=== PATIENT | female | born 1965 | race Caucasian/White ===

== ENCOUNTER → 2017-02-23 | Outpatient (CLI) | payer OTHER ==
[~2017-02-23] VITALS: Ht 160 cm; Wt 142.9 kg
[~2017-02-23] MED LIST: ALEVE220 MG PO; CYMBALTA60 MG PO; LISINOPRIL5 MG PO; PRILOSEC 20 MG20 MG PO; VENLAFAXIN75 MG/1 T2 PO
--- NOTE | ~2017-02-23 | P ---
[facility] [place] [facility] [place] [address] PROCEDURE REPORT Name: ERIBERTO MARTÍNEZ Room #: [facility]#: [id number] Admission: 02/23/17 Attend Phys: Elpidio Alvarez MD Discharge: Date of : 63 Report #: [id number] THIS REPORT FOR: //name// CC: Elpidio Navas MD BRIEF HISTORY: The patient is a 51-year-old woman who presents for her first screening colonoscopy. PREOPERATIVE DIAGNOSIS: Average risk screening colonoscopy. POSTOPERATIVE DIAGNOSES: Average risk screening colonoscopy with normal examination. MEDICATIONS: Deep sedation with propofol per anesthesia. SPECIMEN: None. ESTIMATED BLOOD LOSS: None. PROCEDURE: Colonoscopy to cecum and terminal ileum. FINDINGS: Prior to propofol sedation, procedure of colonoscopy discussed with the patient as well as potential risks, benefits, and complications. She indicates she understands and desires to proceed. With the patient in left lateral decubitus position, digital examination was completed, which revealed no abnormalities. Subsequently, the [employer] video colonoscope was introduced in the rectum, advanced under direct vision to the cecum. Done with minimal difficulty. Cecum was identified by the ileocecal valve and the appendiceal orifice. I was able to visualize the distal segment of terminal ileum, which was inspected and noted to be unremarkable. At that point, the scope was slowly withdrawn and careful circumferential views obtained including retroflexing the scope in the ascending colon. Upon slow withdrawal of the scope, the prep was noted to be excellent. The mucosa was within normal limits, normal vascular pattern, and normal light reflex. No mucosal abnormalities were seen. She had normal colonic mucosa throughout. No neoplastic lesions were seen. Scope was withdrawn in the rectum. Upon retroflexion, no abnormalities were seen. Scope was withdrawn. The patient tolerated the procedure well. CONDITION OF THE PATIENT UPON DISCHARGE: Following procedure, the patient drowsy, aroused, and conversant. She will be discharged home when fully ambulatory. INSTRUCTIONS TO THE PATIENT AND FAMILY AT THE TIME OF DISCHARGE: No neoplastic [facility] [place] [facility] [address] [place] [address] PROCEDURE REPORT Name: ERIBERTO MARTÍNEZ Room #: [facility]#: [id number] Admission: 02/23/17 Attend Phys: Elpidio Alvarez MD Discharge: Date of : 63 Report #: [id number] lesions were seen. It is a negative average risk screening colonoscopy. Advice high fiber diet. The patient to return for followup colon exam in 10 years or sooner if some problems arise indicating the need for colonoscopy. Withdrawal time from the cecum was 15 minutes. <ELECTRONICALLY SIGNED> By: Elpidio Alvarez MD 02/24/17 [id number] [id number] Elpidio Alvarez MD /nt
== END ==
LOC: GI 08:02
DX: Z12.11 Encounter for screening for malignant neoplasm of colon (principal); I10 Essential (primary) hypertension; K21.9 Gastro-esophageal reflux disease without esophagitis; F32.89 Other specified depressive episodes; F41.9 Anxiety disorder, unspecified; E66.01 Morbid (severe) obesity due to excess calories; Z87.891 Personal history of nicotine dependence; Z98.890 Other specified postprocedural states; Z79.899 Other long term (current) drug therapy; Z88.8 Allergy status to other drugs, medicaments and biological substances; Z68.43 Body mass index [BMI] 50.0-59.9, adult
CPT/HCPCS: 62110; 62900